=== PATIENT | female | born 1995 | race Caucasian/White ===

== ENCOUNTER 2016-09-21 00:02 | Emergency (ER) | payer OTHER ==
[2016-09-21 00:10] VITALS: BP 131/73; PULSE 69; RESP 16; TEMP 98.1; O2SAT 10
--- NOTE | 2016-09-21 00:48 | EDPHY ---
H & P Smoking Status: Never smoked Time Seen by Provider: 09/21/16 00:29 HPI/ROS: CHIEF COMPLAINT: Possible infection right index finger HISTORY OF PRESENT ILLNESS: 20-year-old female presents to the emergency department with concerns about possible infection in her right index finger. Patient states over the weekend she cut the dorsal aspect of her right index finger on the window and she was concerned that it was getting infected and so she soaked her finger and some Betadine for approximately 15 minutes. She states that she kind of lost track of the time and then noted that it is discolored her finger and now is having a burning sensation in her finger. She is right-hand dominant. She believes her tetanus shot is current. ROS: She denies numbness or tingling in her fingers currently. She denies retained foreign body. Denies symptoms in the other fingers. (Ema Betancur) Past Medical/Surgical History: Negative (Ema Betancur) Social History: [employer] student (Ema Betancur) Physical Exam: On examination the right index finger is discolored and is orange in color. She has a small superficial wound to the dorsal aspect of the PIP joint of the right 2nd finger. There is no purulent drainage. No signs of laceration. She has full range of motion of her fingers. The other fingers do not appear injured. She has full mobility. (Ema Betancur) Constitutional: Initial Vital Signs Temperature (C) 36.7 C 09/21/16 00:06 Heart Rate 69 09/21/16 00:06 Respiratory Rate 16 09/21/16 00:06 Blood Pressure 131/73 H 09/21/16 00:06 O2 Sat (%) 10 L 09/21/16 00:06 O2 Delivery Mode Room Air Allergies/Adverse Reactions: No Known Allergies Allergy (Verified 04/10/15 10:28) Home Medications: Medication Instructions Recorded NK [No Known Home Meds] 04/10/15 MDM/Departure - MDM ED Course/Re-evaluation: 20-year-old female presents with concerns about possible infection in her right index finger. I do not appreciate any wound infection. The patient does have a discolored finger from soaking her finger in the Betadine, however I do not think the patient needs antibiotics. The patient soaked her finger in some warm water with baby shampoo. She understands that it will take several days for the discoloration to resolved. She also understands that no antibiotics or additional intervention is needed. She may take ibuprofen for any kind of discomfort. (Ema Betancur) PHYSICIAN DOCUMENTATION: The patient was evaluated and managed by the Physician Ammonia Refrigeration Worker. My co- signature indicates that I have reviewed this chart and I agree with the findings and plan of care as documented. I am the secondary supervising physician. (Lenora Wilson) - Depart Disposition: Home, Routine, Self-Care Clinical Impression: Finger pain, right Condition: Good Instructions: Arthralgia (ED), Acute Wounds (ED) Additional Instructions: It will take several days for your finger to turned back to its normal skin color. Return to the emergency department if you develop worsening pain, blistering, or if you feel worse in any way. Referrals: XAVIER YO [Other] - As per Instructions
== END 2016-09-21 01:23 | disposition home or self-care (01) ==
DX: S69.91XA Unspecified injury of right wrist, hand and finger(s), initial encounter (principal); W45.8XXA Other foreign body or object entering through skin, initial encounter

== ENCOUNTER 2016-09-21 20:22 | Emergency (ER) | payer OTHER ==
[2016-09-21 20:30] VITALS: O2SAT 97
--- NOTE | 2016-09-21 21:01 | EDPHY ---
H & P Stated Complaint: chemical burn R 2nd finger Time Seen by Provider: 09/21/16 20:52 HPI/ROS: CHIEF COMPLAINT: Wound check HISTORY OF PRESENT ILLNESS: Patient presents to the ED for a wound check. The patient was seen in the emergency department yesterday concerns about a possible infection to her right 2nd digit. The patient reportedly had a superficial laceration over the weekend which she became concerned about. She soaked her finger in non diluted iodine. After that she developed some redness to the finger and was seen in the emergency department yesterday. The patient was felt to have a chemical irritation secondary to her iodine exposure. She was discharged home with customary aftercare and return precautions. The patient did developed some slight blistering to the dorsum of her right finger today. She denies additional acute complaints. REVIEW OF SYSTEMS: A comprehensive 10 point review of systems is otherwise negative aside from elements mentioned in the history of present illness. Source: Patient Exam Limitations: No limitations - Personal History LMP (Females 10-55): 8-14 Days Ago - Medical/Surgical History Hx Asthma: No Hx Chronic Respiratory Disease: No Hx Diabetes: No Hx Cardiac Disease: No Hx Renal Disease: No Hx Cirrhosis: No Hx Alcoholism: No Hx HIV/AIDS: No Hx Splenectomy or Spleen Trauma: No Other PMH: PSHx: R knee sx. PMHx: denies - Social History Smoking Status: Never smoked - Physical Exam Exam: General: No acute distress Right hand: Right index finger continues to be discolored secondary to affect of iodine. Patient does have 2 superficial blisters noted on the dorsum between the MCP and PIP joint. There is no significant warmth or lymphangitis. The patient has no evidence of circumferential burn. Constitutional: Initial Vital Signs Temperature (C) 36.4 C 09/21/16 20:27 Heart Rate 53 L 09/21/16 20:27 Respiratory Rate 14 09/21/16 20:27 Blood Pressure 116/73 09/21/16 20:27 O2 Sat (%) 97 09/21/16 20:27 O2 Delivery Mode Room Air Allergies/Adverse Reactions: No Known Allergies Allergy (Verified 04/10/15 10:28) Home Medications: Medication Instructions Recorded Cephalexin [Keflex] 500 mg PO TID #15 cap 09/21/16 Medical Decision Making ED Course/Re-evaluation: The patient presents to the ED with a chemical dermatitis/irritation from iodine. At this point time, I will treat the patient prophylactically with Keflex. I will ask her to follow up with our on-call hand surgeon Dr. Leone for recheck this week. Patient is instructed to return to the ED for increasing pain, tense swelling, lymphangitic changes, fever or other concerns. Departure - Departure Disposition: Home, Routine, Self-Care Clinical Impression: Finger pain, right Condition: Good Instructions: Chemical Skin Burn (ED) Additional Instructions: 1. Please apply dressing once a day as directed. 2. Please take antibiotics as directed. 3. Please follow up with our hand specialist Dr. Leone for a recheck in the next 1-2 days. 4. Please return to the ED for a tense finger, red streaking upon your arm, fever, worsening pain or other concerns. Referrals: Eliel Leone MD [Medical Doctor] - As per Instructions Prescriptions: Cephalexin [Keflex] 500 mg PO TID #15 cap
[2016-09-21] MEDS ORDERED: CEPHALEXIN 500 MG CAP PO ONE (21:04)
[2016-09-21 21:29] VITALS: BP 110/65; PULSE 78; RESP 16; TEMP 98.1
== END 2016-09-21 21:31 | disposition home or self-care (01) ==
DX: M79.644 Pain in right finger(s) (principal)